=== PATIENT | male | born 1955 | race Caucasian/White ===

== ENCOUNTER 2021-12-06 09:00 | Day surgery (SDC) | payer MEDICARE ==
[2021-12-06 10:44] LABS: SARS-CoV-2 NAA Rapid Test Not Detected (NotDetected)
[2021-12-06] MEDS ORDERED: Midazolam HCl 2 mg/2 ml Vial ONE (11:53)
[2021-12-06] MEDS ORDERED: PROPOFOL 200 MG/20 ML VIAL ONE (12:30)
[2021-12-06] MEDS ORDERED: Ondansetron PF 4 MG/2 ML Vial ONE (12:30)
[2021-12-06] MEDS ORDERED: Lidocaine 1% PF 5 ML VIAL ONE (12:30)
== END 2021-12-06 14:45 | disposition home or self-care (01) ==
LOC: MRI 09:00
PROVIDERS: ATTEND Otolaryngology Plastic Surgery within the Head & Neck
DX: D33.3 Benign neoplasm of cranial nerves (principal); G91.1 Obstructive hydrocephalus; H91.93 Unspecified hearing loss, bilateral; K21.9 Gastro-esophageal reflux disease without esophagitis; Z20.822 Contact with and (suspected) exposure to COVID-19
CPT/HCPCS: 70553; 75710; U0002; J2250; J2405; J2704

== ENCOUNTER 2022-04-11 14:52 | Outpatient (CLI) | payer MEDICARE | END 2022-04-11 14:53 | disposition home or self-care (01) | LOC: LABBT 14:52 | PROVIDERS: ATTEND Neurological Surgery | DX: Z20.822 Contact with and (suspected) exposure to COVID-19 (principal) | CPT/HCPCS: 87811 ==

== ENCOUNTER 2022-04-15 11:47 | Day surgery (SDC) | payer MEDICARE ==
[2022-04-13 09:18] VITALS: BMI 29.0
[2022-04-15] MEDS ORDERED: Lidocaine 1% MPF 2 ML VIAL ONE ×2 (12:49→14:00)
[2022-04-15] MEDS ORDERED: fentaNYL Citrate/PF 100 MCG/2 ML SYRINGE ONE (13:36)
[2022-04-15] MEDS ORDERED: ePHEDrine 50 MG/ML VIAL ONE (14:00)
[2022-04-15] MEDS ORDERED: PROPOFOL 200 MG/20 ML VIAL ONE (14:00)
[2022-04-15] MEDS ORDERED: Ondansetron PF 4 MG/2 ML Vial ONE (14:00)
[2022-04-15] MEDS ORDERED: Magnevist 469MG/ML 20 ML VIAL ONE (15:33)
== END 2022-04-15 16:02 | disposition home or self-care (01) ==
LOC: SDC/OP 11:47
PROVIDERS: ATTEND Radiology Diagnostic Radiology
PROC: B030ZZZ Magnetic Resonance Imaging (MRI) of Brain (ICD-10-PCS; principal; 2022-04-15)
DX: D33.3 Benign neoplasm of cranial nerves (principal)
CPT/HCPCS: 36415; 70553; 82565